=== PATIENT | female | born 2000 | race Caucasian/White ===

== ENCOUNTER 2019-02-17 17:43 | Emergency (ER) | payer BC, OTHER ==
[~2019-02-17] VITALS: Ht 162.6 cm; Wt 59.0 kg
[2019-02-17 19:09] LABS: Basophils # (auto) 0.1 uL; Basophils % (auto) 0.7 % (0.0-2.0); Eosinophils # (auto) 0.1 uL; Eosinophils % (auto) 1.5 % (0.0-7.0); Hematocrit 39.5 % (36.0-46.0); Lymphocytes # (auto) 2.1 uL; Lymphocytes % (auto) 23.2 % (10.0-50.0); Mean Corpuscular Hemoglobin 28.6 pg (28.0-32.0); Mean Corpuscular Hgb Conc. 32.9 g/dL (32.0-36.0); Mean Corpuscular Volume 87.1 fL (80.0-100.0); Monocytes # (auto) 0.8 uL; Neutrophils # (auto) 5.9 uL; Neutrophils % (auto) 65.6 % (37.0-80.0); Platelet Count (auto) 268 10^3/uL (140-450); Red Blood Cells 4.54 10^6/uL (4.0-5.20); White Blood Cell 9.1 10^3/uL (4.4-10.8)
[2019-02-17 19:18] LABS: Urine Pregnacy Test Negative (Negative)
[2019-02-17 19:24] LABS: Urine Bacteria MANY /hpf (None Seen); Urine Blood Negative /uL (Negative); Urine Mucus FEW (None Seen); Urine Specific Gravity 1.019 (1.001-1.035); Urine WBC 2 /hpf (0 - 5)
[2019-02-17 19:26] LABS: Alcohol, Urine < 3.0 mg/dL (0-5); Amphetamine Screen, Urine NEGATIVE (NEGATIVE); Barbiturate Scree,Urine NEGATIVE (NEGATIVE); Benzodiazephine Screen, Urine NEGATIVE (NEGATIVE); Cannabinoid Screen, Urine POSITIVE (NEGATIVE)
[2019-02-17 19:26] LABS: Alanine Aminotransferase 11 U/L (13-56); Albumin 4.3 g/dL (3.4-5.0); Anion Gap 8 (5-15); Aspartate Aminotransferase 20 U/L (15-37); BUN/Creatinine Ratio 13.7; Blood Alcohol < 3.0 mg/dL (0-5); Blood Urea Nitrogen 10 mg/dL (7-18); Calcium 8.7 mg/dL (8.5-10.1); Carbon Dioxide 23 mmol/L (21-32); Chloride 110 mmol/L (98-107); GFR African American 131 mL/min; GFR Non-African American 108 mL/min; Glucose 83 mg/dL (74-106); Magnesium 2.2 mg/dL (1.6-2.6); Potassium 3.5 mmol/L (3.5-5.1); Sodium 141 mmol/L (136-145)
[2019-02-17 19:29] LABS: Alkaline Phosphatase 96 U/L (45-117); Bilirubin, Total 0.9 mg/dL (0.2-1.0); Total Protein 7.8 g/dL (6.4-8.2)
[2019-02-17 19:33] LABS: Cocaine Screen, Urine NEGATIVE (NEGATIVE); Opiate Scree,Urine NEGATIVE (NEGATIVE); Phencyclidine Screen, Urine NEGATIVE (NEGATIVE)
[2019-02-17] MEDS ORDERED: LORazepam 0.5 MG TAB ONE (19:46)
[2019-02-17 21:02] LABS: Salicylate 2.7 mg/dL (2.8-20.0)
[2019-02-17 21:38] VITALS: BP 105/51
[2019-02-17 21:38] LABS: Acetaminophen < 2.0 ug/mL (10-30)
== END 2019-02-18 00:51 | disposition left against medical advice (07) ==
LOC: EDBD 17:43 → ER 17:47
DX: S51.812A Laceration without foreign body of left forearm, initial encounter (principal); F17.210 Nicotine dependence, cigarettes, uncomplicated; S10.91XA Abrasion of unspecified part of neck, initial encounter; W26.0XXA Contact with knife, initial encounter; Y93.89 Activity, other specified; Y99.8 Other external cause status; Y92.89 Other specified places as the place of occurrence of the external cause
CPT/HCPCS: 12001; 36415; 80053; 80307; 80320; 80329; 81001; 81025; 83735; 85025

== ENCOUNTER 2024-01-10 22:29 | Emergency (ER) | payer OTHER ==
[~2024-01-10] VITALS: Ht 175.3 cm; Wt 80.1 kg
[2024-01-10 22:41] VITALS: BP 127/81; PULSE 105; RESP 14; O2SAT 97
== END 2024-01-11 01:35 | disposition left against medical advice (07) ==
LOC: ER 22:29
DX: J02.9 Acute pharyngitis, unspecified (principal); Z53.21 Procedure and treatment not carried out due to patient leaving prior to being seen by health care provider